=== PATIENT | female | born 1975 | race Caucasian/White ===

== ENCOUNTER 2016-09-10 13:32 | Emergency (ER) | payer OTHER ==
[~2016-09-10] VITALS: Ht 165.1 cm; Wt 49.0 kg
[2016-09-10 13:37] VITALS: BP 121/77
--- NOTE | 2016-09-10 13:50 | ED MVC/FALL/TRAUMA COMPLAINT ---
History of Present Illness General Chief Complaint: Trunk Injury Stated Complaint: L SIDED RIB PAIN S/P FALL Source: patient, old records Exam Limitations: no limitations Vital Signs & Intake/Output Vital Signs & Intake/Output Vital Signs Date Time Temp Pulse Resp B/P B/P Pulse O2 O2 Flow FiO2 Mean Ox Delivery Rate 09/10 1337 97.8 87 15 121/77 99 Room Air Room Air Allergies Coded Allergies: azithromycin (From ZITHROMAX) (rash on entire body 09/10/16) codeine (vomiting 09/10/16) Reconcile Medications Cyclobenzaprine HCl 5 MG TABLET 1 TAB PO TIDPRN PRN PAIN Triage Note: PT TO ED FOR RIB/BACK PAIN STARTING THIS MORNING. PT SLIPPED AND FELL YESTERDAY DOWN THREE STEPS AND LANDED ON BUTT, BUT BACK HIT STAIRS. HURTS TO TAKE DEEP BREATH. O2 SAT WNL. Triage Nurses Notes Reviewed? yes Onset: Abrupt Duration: hour(s): (10), intermittent, waxing and waning Severity: moderate Severity Numbers: 5 Injuries/Fall Location: chest Method of Injury: fall Loss of Consciousness: no loss of consciousness Modifying Factors: Worsens With: coughing. Associated Symptoms: denies : No Patient currently breastfeeds: No HPI: 41-year-old female presents to ER for evaluation complaining of left-sided rib pain after she had a mechanical fall last night while she was walking down the deck stairs. She states she landed on her left side. She denies hitting her head there is no loss of consciousness. She denies any back pain abdominal pain nausea vomiting no upper extremity or lower extremity injury. She is not taken anything for symptoms and is declining anything when offered. Pain is only present with coughing longer nose and certain movements. No hemoptysis no shortness of breath (PAVEL ROE) Past History Travel History Traveled to [place] past 21 day No Medical History Any Pertinent Medical History? 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 No (PAVEL ROE) Review of Systems Review of Systems Constitutional: Reports: no symptoms, see HPI. All Other Systems: Reviewed and Negative Comments Review of systems: See HPI, All other systems negative. Constitutional, no chills no fever, no malaise HEENT:no sore throat no congestion, Cardiovascular: No chest pain , no palpitation Skin: no rashes, no change in skin Respiratory: No dyspnea no cough no sputum or hemoptysis GI: No nausea no vomiting, no diarrhea, no bloating/constipation Muscle skeletal: No joint pain, no joint swelling, no back pain, no neck pain, Neurologic: No numbness no headache Psych: No stress Heme/endocrine: No bruising Immunology: No lymphadenopathy (PAVEL ROE) Physical Exam Physical Exam General Appearance: well developed/nourished, alert, awake Comments: Well-developed well-nourished person in no acute distress HEENT: Normal EENT exam; PERRL, EOMI, HEAD is atraumatic. moist mucous membranes. Neck: Supple, nontender normal range of motion without pain or tenderness Back: Nontender, no CVA tenderness. Full range of motion Cardiovascular: Regular rate and rhythms no murmurs rubs Respiratory: Chest TENDER over the left axilla.There were no bony deformities, no asymmetry. No respiratory distress. Patient speaking in full complete sentences. Breath sounds clear to auscultation bilaterally: NO W/R/R Abdomen: Soft, nontender nondistended Extremity: No edema, full range of motion of extremities Neuro: Alert oriented x3, motor sensory normal, There were no obvious focal neurologic abnormalities. Skin: No appreciable rash on exposed skin, skin is warm and dry. Psych: Mood and affect is normal, memory and judgment is normal. Core Measures ACS in differential dx? No Severe Sepsis Present: No Septic Shock Present: No (PAVEL ROE) Progress Differential Diagnosis: abd injury, C/T/L spine injury, ext injury, pelvis injury, pnemothorax, spinal cord injury Plan of Care: Orders Procedure Date/time Status XRY-RIBS UNILATERAL-LEFT 09/10 1349 Active Patient declining anything for pain offered x-ray ordered from triage I discussed with the patient at length all of their results. I had an extensive conversation regarding need for close follow up with their primary care physician this week as well as return precautions. I answered all of their questions, they feel comfortable with the plan and follow-up care. (PAVEL ROE) Diagnostic Imaging: Viewed by Me: Radiology Read. Discussed w/RAD: Radiology Read. Radiology Impression: PATIENT: LORI VALENTIN PRESENT AGE: 41 PATIENT ACCOUNT NO: [id number] : 75 LOCATION: [facility] ORDERING PHYSICIAN: PAVEL MUKHERJEE SERVICE DATE: 09/10/16 EXAM TYPE: RAD - XRY- RIBS UNILATERAL-LEFT EXAMINATION: XR RIBS, LEFT CLINICAL INFORMATION: Fall with pain, left ribs COMPARISON: 02/10/2008 TECHNIQUE: PA chest and 3 views of the left ribs obtained. FINDINGS: Lungs are clear. No consolidation, pneumothorax, or pleural effusion. The cardiomediastinal silhouette and pulmonary vasculature are normal. Osseous structures are unremarkable. Ribs are intact. No fractures are identified. IMPRESSION: No displaced rib fractures are seen. The lungs are clear. DICTATED BY: LYRIC FRYE MD DATE/TIME DICTATED:09/10/161421 SURVEYOR [employer] DIRECTIONAL:IVY DATE/TIME TRANSCRIBED:09/10/161421 CONFIDENTIAL, DO NOT COPY WITHOUT APPROPRIATE AUTHORIZATION. <Electronically signed in Other Vendor System> SIGNED BY: LYRIC FRYE MD 09/10/161427 (PA[place]EL [place]) Departure Departure Time of Disposition: 1433 Disposition: HOME OR SELF CARE Condition: Stable Clinical Impression Primary Impression: Rib contusion Referrals: IRVIN SULLIVAN (PCP/Family) Additional Instructions: REST, INTERCHANGE ICE AND HEAT. FLEXERIL DIRECTED-THIS MAY MAKE YOU DROWSY. TYLENOL OR MOTRIN FOR PAIN. FOLLOW UP WITH YOUR PMD, RETURN WITH ANY CONCERNS Departure Forms: Customer Survey General Discharge Information Prescriptions: Current Visit Scripts Cyclobenzaprine HCl 1 TAB PO TIDPRN PRN PAIN #12 TAB (PA[place] RO[place]) PA/FIRE FIGHTING EQUIPMENT SPECIALIST Co-Sign Statement Statement: ED Attending supervision documentation- I saw and evaluated the patient. I have also reviewed all the pertinent lab results and diagnostic results. I agree with the findings and the plan of care as documented in the PA's/FIRE FIGHTING EQUIPMENT SPECIALIST's documentation. x I have reviewed the ED Record and agree with the PA's/FIRE FIGHTING EQUIPMENT SPECIALIST's documentation. [] Additions or exceptions (if any) to the PAs/FIRE FIGHTING EQUIPMENT SPECIALIST's note and plan are summarized below: [] (TOÑO CARPENTER,CHRIS)
--- NOTE | 2016-09-10 14:28 | RADIOLOGY REPORT ---
EXAMINATION: XR RIBS, LEFT CLINICAL INFORMATION: Fall with pain, left ribs COMPARISON: 02/10/2008 TECHNIQUE: PA chest and 3 views of the left ribs obtained. FINDINGS: Lungs are clear. No consolidation, pneumothorax, or pleural effusion. The cardiomediastinal silhouette and pulmonary vasculature are normal. Osseous structures are unremarkable. Ribs are intact. No fractures are identified. IMPRESSION: No displaced rib fractures are seen. The lungs are clear.
[2016-09-10] MEDS ORDERED: CYCLOBENZAPRINE5 M2 PO (14:30)
== END 2016-09-10 14:30 ==
LOC: ERH 13:32
DX: S20.212A Contusion of left front wall of thorax, initial encounter (principal); W10.9XXA Fall (on) (from) unspecified stairs and steps, initial encounter; Y92.9 Unspecified place or not applicable; Y93.9 Activity, unspecified
CPT/HCPCS: 71100-LT